=== PATIENT | female | born 2000 | race Caucasian/White ===

== ENCOUNTER 2021-08-31 05:44 | Observation (INO) ==
[2021-08-30 14:01] LABS: Bacteria,Urine Few per hpf (None-Few); Bilirubin,Urine Negative (Negative); Blood,Urine Negative (Negative); Clarity,Urine Turbid (Clear); Color,Urine Light-Yellow (Yellow); Glucose,Urine (UA) Normal (Normal); Ketones,Urine Negative (Negative); Leukocyte Esterase,Urine Trace (Negative); Mucus,Urine Few per lpf (None-Few); Nitrite,Urine Negative (Negative); PH,Urine 6.5 pH Units (5.0-8.0); Protein,Urine Trace mg/dL (Neg-Trace); RBC,Urine 0-3 per hpf (0-3); Specific Gravity,Urine 1.017 (1.010-1.025); Squamous Epithelial Cell,Urine Moderate per hpf (None-Few); Urobilinogen,Urine Normal (Normal); WBC,Urine 0-3 per hpf (0-3)
== END 2021-08-31 08:36 | disposition home or self-care (01) ==
LOC: 1NENULAB
PROVIDERS: ADMIT Advanced Practice Midwife; ATTEND Advanced Practice Midwife

== ENCOUNTER → 2021-09-16 02:39 | Observation (INO) ==
[~2021-09-16 02:39] MED LIST: Ringers Solution, Lactated 1,000 ML IVC ONE; Ringers Solution, Lactated 1,000 ML ONE
== END | disposition home or self-care (01) ==
LOC: 1NENULAB
PROVIDERS: ADMIT Registered Nurse; ATTEND Registered Nurse

== ENCOUNTER → 2021-09-17 23:20 | Observation (INO) | END | disposition home or self-care (01) | LOC: 1NENULAB | PROVIDERS: ADMIT Advanced Practice Midwife; ATTEND Advanced Practice Midwife ==

== ENCOUNTER 2021-09-21 08:28 | Inpatient (IN) ==
[~2021-09-21 08:28] MED LIST changes: +Famotidine 20 MG/2 ML VIAL IVP PRN; +Lidocaine 1% 20 ML MDV INFILT PRN; +Metoclopramide 10 MG/2 ML VIAL IVP PRN; +Naloxone 0.4 MG/ML INJ IVP PRN
[2021-09-21] MEDS: Ringers Solution, Lactated 1,000 ML IVC SCH ×2 (08:35→13:03)
[2021-09-21 08:36] LABS: Basophils % 0.4 %; Immature Granulocytes % 0.6 % (0-4); Mean Platelet Volume 13.1 fL (9.4-12.4); Red Blood Count 4.05 M/mcL (3.82-4.97)
[2021-09-21 08:38] LABS: Eosinophils # 0.1 K/mcL (0.0-0.6); Eosinophils % 0.8 %; Hematocrit 38.4 % (35.3-44.9); Hemoglobin 12.9 g/dL (11.5-15.4); Immature Platelets 17.6 % (1.1-6.1); Mean Corpuscular HGB Conc 33.6 g/dL (31.6-35.5); Mean Corpuscular Hemoglobin 31.9 pg (28.0-33.3); Mean Corpuscular Volume 94.8 fL (83.0-100.0); Monocytes # 0.8 K/mcL (0.0-1.3); Monocytes % 6.9 %; Neutrophils # 7.3 K/mcL (1.6-8.9); Platelet Count 165 K/mcL (140-400); Segmented Neutrophils % 66.3 %
[2021-09-21 08:40] LABS: Lymphocytes # 2.8 K/mcL (0.6-4.6)
[2021-09-21 09:08] LABS: Influenza A PCR Negative (Negative); Influenza B PCR Negative (Negative); Resp. Syncytial Virus PCR Negative (Negative)
[2021-09-21 09:09] LABS: SARS-CoV-2 by PCR (In House) Negative (Negative)
[2021-09-21] MEDS ORDERED: EPHEDrine 50 MG/ML VIAL IVP PRN (09:13)
[2021-09-21] MEDS ORDERED: Ropivacaine/PF 0.2% 20 ML VIAL EP ONE (09:13)
[2021-09-21] MEDS ORDERED: *HR* FentaNYL (PF) 100 MCG/2 ML VIAL EP ONE (09:13)
[2021-09-21] MEDS ORDERED: Oxytocin 30 UNIT/503 ML BAG IVC ONE (09:37)
[2021-09-21] MEDS ORDERED: Oxytocin 30 UNIT/503 ML BAG IVC SCH ×2 (09:45→23:03)
[2021-09-21 09:55] LABS: Alanine Aminotransferase 14 Units/L (7-52); Aspartate Amino Transferase 23 Units/L (13-39); BUN/Creatinine Ratio 19 (6-26); Blood Urea Nitrogen 12 mg/dL (6-20); Lactate Dehydrogenase 240 Units/L (140-271); eGFR For African Americans > 60 (> 60); eGFR For Non-African Americans > 60 (> 60)
[2021-09-21] MEDS ORDERED: *HR* FentaNYL (PF) 100 MCG/2 ML VIAL ONE (10:20)
[2021-09-21] MEDS ORDERED: Ropivacaine/PF 0.2% 20 ML VIAL ONE (10:21)
[2021-09-21 10:24] LABS: Amphetamine Screen,Urine Negative ng/mL (Cutoff=1000); Barbiturate Screen,Urine Negative ng/mL (Cutoff=200); Benzodiazepines Screen,Urine Negative ng/mL (Cutoff=200); Cannabinoid Screen,Urine Negative ng/mL (Cutoff = 50); Cocaine Screen,Urine Negative ng/mL (Cutoff= 300); Opiate Screen,Urine Negative ng/mL (Cutoff=300); Phencyclidine Screen,Urine Negative ng/mL (Cutoff=25)
[2021-09-21 10:35] LABS: Protein/Creatinine Ratio,Urine 0.27 mg/mg (0.00-0.20)
[2021-09-21] MEDS: Epidural Premix (fent/bupiv) 110 ML EP SCH ×2 (10:52→19:31)
[2021-09-21] MEDS ORDERED: Acetaminophen IV 1,000 MG/100 ML BAG IVPB ONE (17:24)
[2021-09-21] MEDS ORDERED: Azithromycin 500 MG in 0.9 % Sodium Chloride 250 ML IVPB ONE (17:43)
[2021-09-21] MEDS ORDERED: Ampicillin 2,000 MG in 0.9 % Sodium Chloride Mini Bag 100 ML IVPB SCH (18:00)
[2021-09-21] MEDS ORDERED: SODIUM CHLORIDE 0.9% IVPB ONE (18:30)
[2021-09-21] MEDS ORDERED: GENTAMICIN IVPB ONE (18:30)
[2021-09-21 18:42] LABS: Basophils % 0.2 %; Monocytes % 8.4 %; Red Cell Distribution Width 13.2 % (11.5-14.5)
[2021-09-21 18:44] LABS: Eosinophils % 0.1 %; Hematocrit 39.7 % (35.3-44.9); Hemoglobin 12.7 g/dL (11.5-15.4); Immature Granulocytes % 0.7 % (0-4); Immature Platelets 15.5 % (1.1-6.1); Lymphocytes % 11.1 %; Mean Corpuscular Hemoglobin 31.3 pg (28.0-33.3); Mean Corpuscular Volume 97.8 fL (83.0-100.0); Monocytes # 1.6 K/mcL (0.0-1.3); Neutrophils # 14.6 K/mcL (1.6-8.9); Platelet Count 145 K/mcL (140-400); Red Blood Count 4.06 M/mcL (3.82-4.97); Segmented Neutrophils % 79.5 %; White Blood Count 18.4 K/mcL (4.3-11.1)
[2021-09-21] MEDS ORDERED: Diphenoxylate/Atropine 1 TAB TABLET PO STA (20:53)
[2021-09-21] MEDS ORDERED: Benzocaine/Menthol 56 GM AEROSOL SPRAY TP PRN (23:03)
[2021-09-21] MEDS ORDERED: OXYTOCIN/RINGERS LACTATE 10 UNIT/166.6 ML BAG IVC ONE (23:03)
[2021-09-21] MEDS ORDERED: Lanolin 7 G OINT...G. TP PRN (23:03)
[2021-09-21] MEDS ORDERED: Ondansetron ODT 4 MG TAB.RAPDIS SL PRN (23:03)
[2021-09-22] MEDS: Ibuprofen 600 MG TABLET PO SCH ×4 (00:04→23:52)
[2021-09-22] MEDS: Acetaminophen 325 MG TABLET PO SCH ×3 (01:00→23:51)
[2021-09-22 04:44] LABS: Basophils % 0.2 %; Mean Corpuscular Volume 92.5 fL (83.0-100.0)
[2021-09-22 04:46] LABS: Basophils # 0.1 K/mcL (0.0-0.2); Eosinophils # 0.1 K/mcL (0.0-0.6); Eosinophils % 0.2 %; Hematocrit 27.2 % (35.3-44.9); Hemoglobin 9.4 g/dL (11.5-15.4); Immature Granulocytes % 0.9 % (0-4); Lymphocytes % 9.3 %; Mean Corpuscular HGB Conc 34.6 g/dL (31.6-35.5); Mean Platelet Volume 13.2 fL (9.4-12.4); Monocytes # 1.9 K/mcL (0.0-1.3); Monocytes % 5.8 %; Neutrophils # 27.3 K/mcL (1.6-8.9); Platelet Count 147 K/mcL (140-400); Red Blood Count 2.94 M/mcL (3.82-4.97); Segmented Neutrophils % 83.6 %
[2021-09-22 04:47] LABS: White Blood Count 32.6 K/mcL (4.3-11.1)
[2021-09-22] MEDS: Prenatal Vit/FA 1 EACH TABLET PO SCH (08:19)
[2021-09-22] MEDS ORDERED: GENTAMICIN IVPB SCH (17:31)
[2021-09-22] MEDS ORDERED: SODIUM CHLORIDE 0.9% IVPB SCH (17:31)
[2021-09-22 18:26] LABS: Eosinophils % 0.3 %; Hemoglobin 8.5 g/dL (11.5-15.4); Immature Granulocytes % 0.7 % (0-4)
[2021-09-22 18:27] LABS: Basophils % 0.2 %; Eosinophils # 0.1 K/mcL (0.0-0.6); Hematocrit 25.1 % (35.3-44.9); Immature Platelets 18.4 % (1.1-6.1); Lymphocytes % 11.9 %; Mean Corpuscular HGB Conc 33.9 g/dL (31.6-35.5); Mean Corpuscular Hemoglobin 32.1 pg (28.0-33.3); Mean Corpuscular Volume 94.7 fL (83.0-100.0); Monocytes # 1.1 K/mcL (0.0-1.3); Monocytes % 5.1 %; Neutrophils # 17.5 K/mcL (1.6-8.9); Platelet Count 110 K/mcL (140-400); Red Blood Count 2.65 M/mcL (3.82-4.97); Red Cell Distribution Width 13.2 % (11.5-14.5); Segmented Neutrophils % 81.8 %; White Blood Count 21.4 K/mcL (4.3-11.1)
[2021-09-22 18:33] LABS: Lymphocytes # 2.6 K/mcL (0.6-4.6)
[2021-09-22 19:54] VITALS: TEMP 98.2; O2SAT 98
[2021-09-23] MEDS: Acetaminophen 325 MG TABLET PO SCH (04:02)
[2021-09-23 04:49] LABS: Basophils % 0.2 %; Eosinophils # 0.1 K/mcL (0.0-0.6); Eosinophils % 0.6 %; Hematocrit 23.7 % (35.3-44.9); Immature Granulocytes % 0.7 % (0-4); Lymphocytes # 3.2 K/mcL (0.6-4.6); Lymphocytes % 17.8 %; Mean Corpuscular HGB Conc 33.8 g/dL (31.6-35.5); Mean Corpuscular Hemoglobin 31.6 pg (28.0-33.3); Mean Corpuscular Volume 93.7 fL (83.0-100.0); Mean Platelet Volume 12.9 fL (9.4-12.4); Monocytes % 5.7 %; Neutrophils # 13.6 K/mcL (1.6-8.9); Platelet Count 150 K/mcL (140-400); Red Blood Count 2.53 M/mcL (3.82-4.97); Red Cell Distribution Width 13.3 % (11.5-14.5); White Blood Count 18.1 K/mcL (4.3-11.1)
[2021-09-23 07:13] VITALS: BP 111/76; PULSE 89
[2021-09-23] MEDS: Prenatal Vit/FA 1 EACH TABLET PO SCH (07:38)
== END 2021-09-23 14:45 | disposition home or self-care (01) | DRG 805 ==
LOC: 1NENULAB → 1NENUOBS 23:04
PROVIDERS: ADMIT Advanced Practice Midwife; ATTEND Advanced Practice Midwife